=== PATIENT | male | born 1975 | race Caucasian/White ===

== ENCOUNTER → 2018-07-30 15:21 | Outpatient (CLI) | payer OTHER, SELFPAY ==
--- NOTE | 2018-07-30 | DI.MRI.S_ITS ---
PROCEDURE: MR KNEE RT WO CON INDICATIONS: RIGHT KNEE PAIN TECHNIQUE: Noncontrast sagittal PD fast spin echo and T2 fast spin echo with fat saturation, sagittal 3-D FLASH with fat saturation; coronal T1 spin echo and PD fast spin echo with fat saturation, and axial PD fast spin echo with fat saturation through the knee. COMPARISON: None. FINDINGS: Image quality: Diagnostic. Bones and joint: There is no acute fracture or dislocation. No suspicious osseous lesions are evident. There is a small knee joint effusion without significant fluid extending into a Campbell cyst. No significant degenerative changes of the knee are evident. However, there is heterogeneity of the hyaline articular cartilage. Cruciate ligaments: Marked thickening and heterogeneity of the anterior cruciate ligament is present, suggesting chronic partial thickness injury. The posterior cruciate ligament is intact and otherwise unremarkable. Menisci: Linear increased signal along the periphery of the body of the medial meniscus is present without involvement of the articular surface. A small para meniscal cyst is evident along the periphery of the anterior horn of the medial meniscus. The lateral meniscus is intact and otherwise unremarkable. Medial structures: The medial collateral ligament is intact. The semimembranosus tendon insertion is intact. The imaged portions of the pes anserinus tendons are unremarkable. No significant fluid is contained within the pes anserinus bursa. Lateral structures: The popliteal tendon is mildly edematous at its origin. The lateral collateral ligament proper (fibular collateral ligament) and the proximal tibiofibular ligaments are intact. The distal aspect of the biceps femoris tendon and the iliotibial band are intact. Anterior structures: The quadriceps and patellar tendons are intact. There is no significant edema in the infrapatellar fat pad. IMPRESSION: 1. 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 No complete tear. 2. Cartilaginous heterogeneity about the knee and may represent early chondromalacia. No definite full-thickness defect. 3. Small knee joint effusion. 4. Mild proximal popliteal tendinopathy. 5. Possible nondisplaced horizontal tear along the periphery of the medial meniscus versus normal vascular structures. No articular surface tearing or displaced fragments. Dictated by: Murphy Rg M.D. on 07/30/2018 at 15:48 Approved by: Murphy Rg M.D. on 07/30/2018 at 15:51
== END ==
PROVIDERS: Visit Provider General Practice
DX: M25.561 Pain in right knee (principal); S83.511A Sprain of anterior cruciate ligament of right knee, initial encounter; M25.461 Effusion, right knee
CPT/HCPCS: 73721